=== PATIENT | female | born 1965 | race African-American/Black ===

== ENCOUNTER 2023-02-23 20:39 | Emergency (ER) | payer OTHER, SELFPAY ==
[2023-02-23 20:42] VITALS: BP 138/75; PULSE 74; RESP 15; TEMP 36.2; O2SAT 100
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
== END 2023-02-23 22:13 | disposition home or self-care (01) ==
PROVIDERS: Emergency Provider Nurse Practitioner
DX: S89.91XA Unspecified injury of right lower leg, initial encounter (principal); S89.92XA Unspecified injury of left lower leg, initial encounter; V49.40XA Driver injured in collision with unspecified motor vehicles in traffic accident, initial encounter
CPT/HCPCS: 99282

== ENCOUNTER 2023-05-01 21:43 | Emergency (ER) | payer BC, SELFPAY ==
[2023-05-01 22:14] VITALS: BP 123/80; PULSE 78; RESP 20; TEMP 36.3; O2SAT 100
[2023-05-01 22:52] LABS: Appearance Urine Cloudy (Clear); Bacteria Urine 4+ /hpf; Bilirubin Urine Negative (Negative); Blood Urine 1+ (Negative); Color Urine Yellow (Yellow); Glucose Urine UA Negative (Negative); Ketones Urine Negative (Negative); Leukocyte Esterase Ur 2+ LEU/UL (Negative); Nitrate Urine Positive (Negative); Protein Urine Trace mg/dL (Negative); Specific Grav Ur 1.018 (1.001-1.035); Squamous Epithelial Cell Urine Occasional /hpf (Few); WBC Urine 21-50 /hpf
[2023-05-01 22:59] LABS: Add Urine Microscopic? YES
--- NOTE | 2023-05-01 23:04 | ED.FEMALEGU ---
HPI - Female Genitourinary General Chief complaint: Urogenital-Female Stated complaint: uti Time Seen by Provider: 05/01/23 22:39 Source: patient Limitations: no limitations History of Present Illness HPI Narrative: Patient is a 57-year-old female present to the emergency department complaining of a UTI. Patient states she knows he has a urinary tract infection because he has had these in the past and denies any recent urinary tract infections or recent antibiotic use. Patient states she has been having dysuria and some suprapubic abdominal discomfort for the past 1 week. Patient denies urgency, frequency, hematuria, history of kidney stones. Patient denies fever, back pain, recent injuries, recent illness. Related Data Allergies Allergy/AdvReac Type Severity Reaction Status Date / Time No Known Allergies Allergy Verified 05/01/23 22:21 Review of Systems Review of Systems: A 10 system review of systems was completed on the patient and is negative except for what is stated in the HPI. Nursing and ancillary documentation was reviewed. PMFSH Comments At time of signature, I have reviewed and agree with nursing past medical, surgical, social and family history unless otherwise noted. Please see the nursing chart for further information. There is no relevant family history pertinent to the presenting complaint. Exam Narrative: CONST: No acute distress. Well nourished. HENMT: Head is normocephalic and atraumatic. Moist mucous membranes. No posterior oropharynx erythema. EYES: No conjunctival icterus, injection, or pallor. PERRL. NECK: No meningeal signs. RESP: Able to speak in full sentences. Normal respiratory effort. CTAB. CARDIO: Regular rate. Regular rhythm. 2+ DP and radial pulses bilaterally. GI: Nondistended. Mild suprapubic tenderness to palpation. Soft. No rebound or guarding or rigidity. : No CVA tenderness to palpation. SKIN: No rashes or lesions noted on exposed skin. NEURO: Oriented x3. Moves all extremities. EXTREM: No pedal edema. PSYCH: Normal affect. Course Vital Signs Vital signs: Vital Signs Temperature 97.4 F L 05/01/23 22:14 Pulse Rate 78 05/01/23 22:14 Respiratory Rate 20 05/01/23 22:14 Blood Pressure 123/80 05/01/23 22:14 Pulse Oximetry 100 05/01/23 22:14 Oxygen Delivery Room Air 05/01/23 22:14 Temperature 97.4 F L 05/01/23 22:14 Pulse Rate 78 05/01/23 22:14 Respiratory Rate 20 05/01/23 22:14 Blood Pressure 123/80 05/01/23 22:14 Pulse Oximetry 100 05/01/23 22:14 Oxygen Delivery Room Air 05/01/23 22:14 MDM - Female Genitourinary MDM Narrative Medical decision making narrative: Patient presents with the above complaint. Initial vitals are remarkable for no significant abnormalities. Patient appears in no acute distress. Physical examination notable for mild suprapubic tenderness palpation. Plan discussed: Urinalysis. Patient was reassessed at the bedside. No changes in physical exam. Patient is in no acute distress. The patient has remained stable throughout the entire ED visit. Counseled patient regarding diagnostic results and potential diagnosis. Anticipatory guidance provided. Patient instructed to follow up with PCP within 1 week. Patient instructed to return if her symptoms do not improve within the next 48 to 72 hours that she may require change of the antibiotic due to bacterial resistance and we will have culture results by that time. Patient instructed of signs and symptoms of pyelonephritis. Patient counseled on: false reassurance from an emergency department evaluation; no current evidence of a medical emergency; return immediately for any new, recurrent, worsening, concerning, or refractory symptoms. Patient prescribed keflex and tylenol. Prescription sent to preferred pharmacy. Medications discussed with patient. Additional verbal and printed discharge instructions were given and discussed with the patient. Patient ve
--- NOTE | 2023-05-01 23:07 | PC.NURSE ---
Report from OSITO Rae.
[2023-05-01] MEDS: CEPHALEXIN 500 MG CAPSULE PO (23:51)
[2023-05-01 23:52] VITALS: BP 117/74; PULSE 74; RESP 14; O2SAT 98
== END 2023-05-01 23:59 | disposition home or self-care (01) ==
LOC: ANHED 23:37
PROVIDERS: Emergency Provider Student in an Organized Health Care Education/Training Program
DX: N30.01 Acute cystitis with hematuria (principal)
CPT/HCPCS: 81001; 87077; 87086; 87186; 99283; A9270

== ENCOUNTER 2023-10-26 15:29 | Emergency (ER) | payer BC, SELFPAY ==
--- NOTE | ~2023-10-26 | XR_ITS ---
EXAMINATION: XR chest 1V portable DATE: 10/26/2023 18:42 INDICATION: Difficulty breathing. Anxiety. TECHNIQUE: A single frontal view of the chest was obtained. COMPARISON: None. FINDINGS: There is mild scarring at right lung apex. No pleural effusion or pneumothorax. The heart s ize is normal. IMPRESSION: 1. Mild scarring at right lung apex. Reviewed, dictated and finalized at location E.
[2023-10-26 15:38] VITALS: BP 114/72; PULSE 71; PULSE 72; RESP 18; TEMP 35.9; TEMP 36.6; O2SAT 100
[2023-10-26 17:35] VITALS: BP 123/71; PULSE 68; RESP 19; O2SAT 100
--- NOTE | 2023-10-26 17:54 | PC.NURSE ---
pt seen ambulating through the car park.
[2023-10-26 18:15] VITALS: RESP 16
--- NOTE | 2023-10-26 18:15 | ECG_ITS ---
SEE SCANNED COPY FOR CONFIRMED REPORT MTDD
--- NOTE | 2023-10-26 18:22 | PC.NURSE ---
PT STATES SHE IS OVERWHELMED AT WORK. THEY HAVE WORKERS AT WORKING 9 HOUR SHIFTS 6 DAYS A WEEK AND ITS VERY STRESSFUL. SHE IS TRYING TO HOLD OFF [employer] UNTIL SHE IS 61. PT IS REQUESTING MEDS TO HELP HER STRESS LEVEL.
--- NOTE | 2023-10-26 19:57 | ED.GENADULT ---
HPI - General Adult General Chief complaint: Unspecified Stated complaint: anxiety Time Seen by Provider: 10/26/23 18:15 Source: patient Mode of arrival: ambulatory Limitations: no limitations History of Present Illness HPI narrative: This is a 58-year-old female who presents to the ED with chief complaint of intermittent anxiety symptoms for the past several months. She is here requesting medications to calm her nerves. Patient states that she has been working 6 days a week at her job at [employer]. She reports this is causing a lot of stress in that she does not have enough time to rest. States she will have episodes of shortness of breath, shaking and bilateral hand numbness. States she is currently asymptomatic. Denies chest pain or syncope. Related Data Allergies Allergy/AdvReac Type Severity Reaction Status Date / Time No Known Allergies Allergy Verified 05/01/23 22:21 Review of Systems Review of Systems: All systems as dictated in HPI Exam Narrative: GENERAL: Actively, consistently scrolling on phone during our conversation. Well-appearing, well-nourished, and in no acute distress. HEAD: Normocephalic, atraumatic. EYES: PERRLA and EOMI. ENT: Nares clear, no rhinorrhea or epistaxis. Mucous membranes moist. Oropharynx without tonsillar hypertrophy exudate or other lesions. NECK: Supple. No adenopathy or masses. CHEST: No respiratory distress. Clear to auscultation. No wheezes rales or rhonchi HEART: Regular rate and rhythm. No murmur heard. Normal peripheral pulses. ABDOMEN: Soft, nontender, nondistended, normal active bowel sounds. MSK: Normal range of motion. No edema. SKIN: Warm, dry, no rash. NEURO: Alert and oriented x3. No focal deficits. PSYCH: Normal mood and affect. Course Vital Signs Vital signs: Vital Signs Temperature 96.7 F L 10/26/23 15:38 Pulse Rate 71 10/26/23 15:38 Respiratory Rate 18 10/26/23 15:38 Blood Pressure 114/72 10/26/23 15:38 Pulse Oximetry 100 10/26/23 15:38 Oxygen Delivery Room Air 10/26/23 15:38 Temperature 97.8 F 10/26/23 15:38 Pulse Rate 72 10/26/23 15:38 Respiratory Rate 16 10/26/23 18:15 Blood Pressure 114/72 10/26/23 15:38 Pulse Oximetry 100 10/26/23 15:38 Oxygen Delivery Room Air 10/26/23 15:38 Medical Decision Making MDM Narrative Medical decision making narrative: This is a 58-year-old female who presents to the ED with 4 months of intermittent anxiety. Vitals are normal. EKG shows sinus rhythm. Chest x-ray normal. Symptoms and presentation consistent with anxiety. Hydroxyzine p.r.n. prescribed. Pt will be discharged in stable condition. Return precautions given and supportive measures discussed. Pt is understanding and agreeable with plan for discharge and follow-up with PCP. Vital Signs Vital Signs: Vital Signs Temperature 96.7 F L 10/26/23 15:38 Pulse Rate 71 10/26/23 15:38 Respiratory Rate 18 10/26/23 15:38 Blood Pressure 114/72 10/26/23 15:38 Pulse Oximetry 100 10/26/23 15:38 Oxygen Delivery Room Air 10/26/23 15:38 Temperature 97.8 F 10/26/23 15:38 Pulse Rate 72 10/26/23 15:38 Respiratory Rate 16 10/26/23 18:15 Blood Pressure 114/72 10/26/23 15:38 Pulse Oximetry 100 10/26/23 15:38 Oxygen Delivery Room Air 10/26/23 15:38 Discharge Plan Discharge Clinical Impression: Anxiety Patient Disposition: Left Without Being Sn Triaged Additional Instructions: Exam and imaging today are reassuring. Follow-up with your doctor. Prescriptions: New hydroxyzine HCl 25 mg tablet 25 mg PO TID PRN (Reason: anxiety) Qty: 30 0RF No Action cephalexin 500 mg capsule 500 mg PO Q12H 6 Days Qty: 12 0RF acetaminophen 500 mg tablet 500 mg PO Q6H PRN (Reason: pain) Qty: 30 0RF Follow-up/Referrals: Nikolas Mckay MD [Physician] - UNKNOWN,DOCTOR [Primary Care Provider] - Time of Disposition: 20:00
[2023-10-26 20:00] VITALS: BP 120/74; PULSE 72; RESP 19; TEMP 36.5; O2SAT 100
== END 2023-10-26 20:04 | disposition home or self-care (01) ==
PROVIDERS: Emergency Provider Physician Assistant
DX: F41.9 Anxiety disorder, unspecified (principal)
CPT/HCPCS: 71045; 93005; 99199; 99283